=== PATIENT | male | born 1990 | race Caucasian/White ===

== ENCOUNTER 2022-04-04 22:44 | Emergency (ER) | payer SELFPAY ==
[2022-04-04] MEDS ORDERED: Acetaminophen 500 MG TAB ONE (22:57)
[2022-04-04] MEDS ORDERED: Dexamethasone 10 MG/ML VIAL ONE (23:39)
== END 2022-04-04 23:50 | disposition home or self-care (01) ==
LOC: MADERS 22:44
DX: J06.9 Acute upper respiratory infection, unspecified (principal); Z20.822 Contact with and (suspected) exposure to COVID-19
CPT/HCPCS: 87081; 87430; 87804; 96372; 99283; J1100; U0003; U0005